=== PATIENT | male | born 1995 | race Caucasian/White ===

== ENCOUNTER 2016-04-02 22:31 | Emergency (ER) | payer BC ==
[2016-04-02 23:18] VITALS: RESP 18; TEMP 97.2
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
[2016-04-02] MEDS ORDERED: Ondansetron ODT Tab 8 MG TAB PO SCH (23:45)
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
== END 2016-04-03 00:07 | disposition home or self-care (01) ==
LOC: ER 22:31
DX: S06.0X1A Concussion with loss of consciousness of 30 minutes or less, initial encounter (principal); S00.12XA Contusion of left eyelid and periocular area, initial encounter; S00.432A Contusion of left ear, initial encounter; R11.0 Nausea; Y04.2XXA Assault by strike against or bumped into by another person, initial encounter
CPT/HCPCS: 70450; 70486; 99282 ×2; Q0162

== ENCOUNTER → 2016-09-19 | Outpatient (CLI) | payer BC ==
[2016-09-19 09:20] LABS: BASOPHILS # (AUTO) 0.02 10*3/UL; BASOPHILS % (AUTO) 0.2 % (0-1); EOSINOPHILS # (AUTO) 0 10*3/UL; EOSINOPHILS % (AUTO) 0 % (0-8); LYMPHOCYTES # (AUTO) 0.81 10*3/uL; MEAN CORPUSCULAR HEMOGLOBIN 29.8 PG (27-31); MEAN CORPUSCULAR HGB CONC 34.8 g/dL (33-37); MEAN CORPUSCULAR VOLUME 85.7 FL (80-90); MEAN PLATELET VOLUME 9.2 FL (7.4-12.2); MONOCYTES # (AUTO) 0.75 10*3/UL (0.3-0.8); MONOCYTES % (AUTO) 6.6 % (5-15); NEUTROPHILS # (AUTO) 9.74 10*3/UL; NEUTROPHILS % (AUTO) 85.9 % (50-80); RED BLOOD COUNT 5.37 10^6/uL (4.70-6.10)
[2016-09-19 09:30] LABS: PLATELET MORPHOLOGY COMMENT NORMAL MORPHOLOGY (NORM); RBC MORPHOLOGY COMMENT NORMAL MORPHOLOGY (NORM); WBC MORPHOLOGY COMMENT NORMAL MORPHOLOGY (NORM)
[2016-09-19 09:36] LABS: BLOOD UREA NITROGEN 10 mg/dL (7-22); BUN/CREATININE RATIO 9.09 (6-20); C-REACTIVE PROTEIN 2.7 mg/dL (0.0-0.9); CALCIUM 9.1 mg/dL (8.7-10.7); EST GLOMERULAR FILTRATION > 60 (>60 ml/min/1.73m(2)); LIPASE 20 IU/L (23-300); SERUM ALBUMIN 4.5 g/dL (3.5-4.8)
== END ==
LOC: MOB LAB 08:55
PROVIDERS: ATTEND Physician Assistant
DX: K92.1 Melena (principal); R10.13 Epigastric pain; R11.2 Nausea with vomiting, unspecified
CPT/HCPCS: 36415; 80053; 83690; 85025; 86140; 87088

== ENCOUNTER → 2016-09-19 | Outpatient (CLI) | payer BC ==
[2016-09-22 15:36] LABS: PARASITIC EXAM FIN 1539 (())
== END ==
LOC: LAB 14:16
PROVIDERS: ATTEND Physician Assistant
DX: R19.7 Diarrhea, unspecified (principal); R10.13 Epigastric pain; R11.2 Nausea with vomiting, unspecified
CPT/HCPCS: 36415; 82272; 83630; 87046; 87177; 87205; 87209; 87328; 87329; 87338; 87449; 87493